=== PATIENT | female | born 1975 | race Caucasian/White ===

== ENCOUNTER 2018-11-13 12:02 | Outpatient (CLI) | payer MEDICARE ==
[2018-11-13] MEDS ORDERED: IBUP-1221 PO (12:48)
[2018-11-13] MEDS ORDERED: PREN1TAB60 PO (12:48)
[2018-11-21] MEDS ORDERED: ACET-1600 PO (12:54)
[2018-11-22] MEDS ORDERED: OXYC-302 PO (11:44)
[2018-11-22] MEDS ORDERED: IBUP-1223 PO (11:46)
== END 2018-11-13 23:59 | disposition home or self-care (01) ==
LOC: STAR 12:02
PROVIDERS: ATTEND Obstetrics & Gynecology
DX: Z02.9 Encounter for administrative examinations, unspecified (principal)

== ENCOUNTER 2021-03-19 14:34 | Emergency (ER) | payer MEDICARE ==
[~2021-03-19] VITALS: Ht 172.7 cm; Wt 87.8 kg
[~2021-03-19 14:34] MED LIST: ACET-1600 PO; IBUP-1221 PO; IBUP-1223 PO; OXYC1TAB14 PO; PREN1TAB60 PO
--- NOTE | 2021-03-19 14:40 | NUR ---
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 pt to have EKG in room
[2021-03-19] MEDS ORDERED: MORPHINE SULFATE 4 MG/ML, 1ML IVPush PRN (15:00)
[2021-03-19] MEDS ORDERED: SODIUM CHLORIDE FLUSH 10ML SYR IVF ONE (15:00)
[2021-03-19] MEDS ORDERED: ONDANSETRON 2MG/ML, 2ML IVPush ONE (15:00)
[2021-03-19 15:11] LABS: BASOPHILS % (AUTO) 1 % (0-1); EOSINOPHILS % (AUTO) 4 % (1-7); LYMPHOCYTES % (AUTO) 28 % (22-44); MEAN CORPUSCULAR HEMOGLOBIN 32.4 pg (27.0-34.8); MEAN CORPUSCULAR HGB CONC 34.5 g/dL (32.4-35.8); MONOCYTES % (AUTO) 6 % (2-9); NEUTROPHILS % (AUTO) 62 % (42-75); PLATELET COUNT 330 x10^3/uL (130-400); RED BLOOD COUNT 4.07 x10^6/uL (3.82-5.3); RED CELL DISTRIBUTION WIDTH 12.7 % (9.6-15.2)
[2021-03-19 15:24] LABS: ALANINE AMINOTRANSFERASE 25 U/L (12-78); ALBUMIN 3.7 g/dL (3.4-5.0); ANION GAP 10 mmol/L (5-15); CALCIUM 8.6 mg/dL (8.5-10.1); CHLORIDE 107 mmol/L (98-107); CREATININE 0.98 mg/dL (0.55-1.02)
[2021-03-19 15:29] LABS: ALKALINE PHOSPHATASE 107 U/L (45-117); BILIRUBIN,TOTAL 0.3 mg/dL (0.2-1.0); TOTAL PROTEIN 7.8 g/dL (6.4-8.2); TROPONIN I < 0.015 ng/mL (0.000-0.045)
--- NOTE | 2021-03-19 15:30 | NUR ---
PT STATES HAD PAIN IN UPPER RIGHT EPIGASTRIC PAIN FOR THE LAST 3 MONTHS, THEN A 1.5 MONTHS AGO WENT TO THE DOCTOR DID BLOOD LIVER ALS LIVER ENZYMES TYPICALLY PUSHES THROUGH PAIN LAST NIGHT PAIN MADE HER DOUBLE OVER WITH PAIN SWEATING, SOB, DIZZINESS AND SHAKING, FROM THE PAIN. TODAY DECIDED TO COME TO THE HOSPITAL.
[2021-03-19] MEDS ORDERED: ONDANSETRON 2MG/ML, 2ML ONE (15:33)
[2021-03-19] MEDS ORDERED: MORPHINE SULFATE 4 MG/ML, 1ML ONE (15:33)
--- NOTE | 2021-03-19 15:35 | NUR ---
ULTRASOUND AT BEDSIDE TO DO EXAM
[2021-03-19 15:46] LABS: MICROSCOPIC NOT IND
--- NOTE | 2021-03-19 15:51 | NUR ---
PT STATES PAIN HAS GONE DOWN SIGNIFICANTLY SINCE BEING MEDICATED.
[2021-03-19] MEDS ORDERED: MAALOX/HYOSCYAMINE/LIDOCAINE 45 ML BTL PO ONE (16:30)
[2021-03-19] MEDS ORDERED: MAALOX/HYOSCYAMINE/LIDOCAINE 45 ML BTL ONE (16:44)
--- NOTE | 2021-03-19 16:53 | NUR ---
PT STATES FEEL BETTER AFTER GI COCKTAIL
[2021-03-19 16:54] VITALS: BP 104/89
--- NOTE | 2021-03-19 17:28 | NUR ---
Patient/Caregiver given discharge instructions and they have confirmed that they understand the instructions. Patient ambulatory with steady gait.
== END 2021-03-19 17:29 | disposition home or self-care (01) ==
LOC: ED 16:20
DX: K29.50 Unspecified chronic gastritis without bleeding (principal); R10.13 Epigastric pain; F17.210 Nicotine dependence, cigarettes, uncomplicated; R06.02 Shortness of breath
CPT/HCPCS: 36415; 71045; 76700; 80053; 81003; 83690; 83880; 84484; 85025; 93005; 96374; 96375; 99285; J2270; J2405